=== PATIENT | male | born 1945 | race Caucasian/White ===

== ENCOUNTER 2018-08-06 11:15 | Emergency (ER) | payer MEDICARE, BC ==
[~2018-08-06] VITALS: Ht 180.3 cm; Wt 124.1 kg
[~2018-08-06 11:15] MED LIST: IBUP-1984 PO; PRED20TA PO
[2018-08-06 11:39] VITALS: BP 166/68
[2018-08-06] MEDS ORDERED: CYCL-1 PO (13:11)
[2018-08-06] MEDS ORDERED: oxyCODONE/APAP 10/325mg tablet PO ONE (13:20)
== END 2018-08-06 13:55 | disposition home or self-care (01) ==
LOC: ER 11:15
DX: G89.29 Other chronic pain (principal); M54.41 Lumbago with sciatica, right side; I10 Essential (primary) hypertension; I25.10 Atherosclerotic heart disease of native coronary artery without angina pectoris; E78.00 Pure hypercholesterolemia, unspecified; M10.9 Gout, unspecified; Z76.0 Encounter for issue of repeat prescription; Z79.1 Long term (current) use of non-steroidal anti-inflammatories (NSAID); Z79.899 Other long term (current) drug therapy; Z95.5 Presence of coronary angioplasty implant and graft; Z98.890 Other specified postprocedural states
CPT/HCPCS: 72100; 99283

== ENCOUNTER 2019-06-02 06:48 | Day surgery (SDC) | payer MEDICARE ==
[2019-06-02] VITALS (12 sets, daily range): BP systolic 122–143; BP diastolic 61–71
[~2019-06-02] VITALS: Ht 177.8 cm; Wt 97.2 kg
[~2019-06-02 06:48] MED LIST changes: +CYCL-1 PO
[2019-06-02] MEDS ORDERED: fentaNYL/PF 50MCG/1 ML 2ML syringe IV ONE (07:10)
[2019-06-02] MEDS ORDERED: MIDAZolam 1mg/ml 10ml vial IV ONE (07:10)
[2019-06-02] MEDS ORDERED: normal saline 1000ml 1,000 ML IV SCH (07:10)
[2019-06-02] MEDS ORDERED: HYDR-3686 PO (07:15)
[2019-06-02] MEDS ORDERED: HYDR12.55 PO (07:15)
[2019-06-02] MEDS ORDERED: ALLO100T PO (07:15)
[2019-06-02] MEDS ORDERED: FOLI0.4T2 PO (07:15)
[2019-06-02] MEDS ORDERED: GABA-532 PO (07:15)
[2019-06-02] MEDS ORDERED: ATOR80TA PO (07:15)
[2019-06-02] MEDS ORDERED: HYDR-4353 PO (07:15)
[2019-06-02] MEDS ORDERED: FLO0.4C PO (07:15)
[2019-06-02] MEDS ORDERED: METO-467 PO (07:15)
[2019-06-02] MEDS ORDERED: GABA-534 PO (07:15)
[2019-06-02] MEDS ORDERED: CLOP75TA15 PO (07:15)
[2019-06-02] MEDS ORDERED: APIX5TAB3 PO (07:15)
[2019-06-02 07:43] LABS: BASOPHILS % (AUTO) 0.4 % (0-1); EOSINOPHILS # (AUTO) 0.1 X10'3 (0-0.9); EOSINOPHILS % (AUTO) 2.1 % (0-6); HEMATOCRIT 35.4 % (42.0-52.0); HEMOGLOBIN 11.3 g/dl (14.0-17.9); LYMPHOCYTES # (AUTO) 1.1 X10'3 (1.1-4.8); MEAN CORPUSCULAR HEMOGLOBIN 27.8 PG (27.0-31.0); MEAN CORPUSCULAR HGB CONC 31.9 g/dL (33.0-36.5); MEAN PLATELET VOLUME 9.3 FL (7.4-10.4); MONOCYTES # (AUTO) 0.4 X10'3 (0-0.9); NEUTROPHILS # (AUTO) 3.7 X10'3 (1.8-7.7); NEUTROPHILS % (AUTO) 69.5 % (42-75); PLATELET COUNT 81 X10'3 (140-440); RED BLOOD COUNT 4.07 X10'6 (4.70-6.10); RED CELL DISTRIBUTION WIDTH 14.3 % (11.5-14.5); WHITE BLOOD COUNT 5.3 X10'3 (4.5-11.0)
[2019-06-02 07:53] LABS: ALBUMIN 3.1 G/DL (3.4-5.0); ANION GAP 6 (8-16); BLOOD UREA NITROGEN 21 MG/DL (7-18); BUN/CREATININE RATIO 15.3 (5.4-32.0); CALCIUM 8.9 MG/DL (8.5-10.1); CHLORIDE 108 MMOL/L (99-107); CREATININE 1.37 MG/DL (0.60-1.10); GLUCOSE 105 MG/DL (70-104); POTASSIUM 4.1 MMOL/L (3.5-5.1); SODIUM 143 MMOL/L (135-145); TOTAL CARBON DIOXIDE 29.1 MMOL/L (24-32); eGFR 51 ML/MIN
[2019-06-02 08:04] LABS: PARTIAL THROMBOPLASTIN TIME 29 SECONDS (22-32)
== END 2019-06-02 10:40 | disposition home or self-care (01) ==
LOC: SSTAY O 06:48 → MED 3N 06:53 → SSTAY O 10:40
PROVIDERS: ATTEND Internal Medicine Interventional Cardiology
DX: I48.92 Unspecified atrial flutter (principal); I48.91 Unspecified atrial fibrillation; I10 Essential (primary) hypertension; M19.90 Unspecified osteoarthritis, unspecified site; N40.0 Benign prostatic hyperplasia without lower urinary tract symptoms; I25.10 Atherosclerotic heart disease of native coronary artery without angina pectoris; I65.23 Occlusion and stenosis of bilateral carotid arteries; I27.20 Pulmonary hypertension, unspecified; Z86.73 Personal history of transient ischemic attack (TIA), and cerebral infarction without residual deficits; Z79.899 Other long term (current) drug therapy; Z79.01 Long term (current) use of anticoagulants; Z85.51 Personal history of malignant neoplasm of bladder
CPT/HCPCS: 36415; 80048; 85025; 85610; 85730; 92960; 93005; J2250; J3010

== ENCOUNTER 2019-12-20 09:30 | Emergency (ER) | payer MEDICARE ==
[~2019-12-20] VITALS: Ht 177.8 cm; Wt 104.0 kg
[~2019-12-20 09:30] MED LIST changes: +ALLO100T PO; +APIX5TAB3 PO; +ATOR80TA PO; +CLOP75TA15 PO; -CYCL-1 PO; +FLO0.4C PO; +FOLI0.4T2 PO; +GABA-532 PO; +GABA-534 PO; +HYDR-3686 PO; +HYDR-4353 PO; +HYDR12.55 PO; -IBUP-1984 PO; +METO-467 PO; -PRED20TA PO
[2019-12-20 10:27] LABS: BASOPHILS % (AUTO) 0.6 % (0-1); EOSINOPHILS # (AUTO) 0.3 X10'3 (0-0.9); EOSINOPHILS % (AUTO) 6.6 % (0-6); HEMATOCRIT 25.9 % (42.0-52.0); HEMOGLOBIN 8.4 g/dl (14.0-17.9); LYMPHOCYTES % (AUTO) 25.2 % (21-51); MEAN CORPUSCULAR HEMOGLOBIN 28.8 PG (27.0-31.0); MEAN CORPUSCULAR HGB CONC 32.5 g/dL (33.0-36.5); MEAN CORPUSCULAR VOLUME 88.5 FL (78-98); MEAN PLATELET VOLUME 9.3 FL (7.4-10.4); MONOCYTES # (AUTO) 0.4 X10'3 (0-0.9); MONOCYTES % (AUTO) 9.1 % (2-12); NEUTROPHILS # (AUTO) 2.4 X10'3 (1.8-7.7); NEUTROPHILS % (AUTO) 58.5 % (42-75); PLATELET COUNT 119 X10'3 (140-440); RED BLOOD COUNT 2.93 X10'6 (4.70-6.10); RED CELL DISTRIBUTION WIDTH 14.9 % (11.5-14.5); WHITE BLOOD COUNT 4.1 X10'3 (4.5-11.0)
[2019-12-20 10:45] LABS: ALANINE AMINOTRANSFERASE 25 U/L (12-78); ALBUMIN/GLOBULIN RATIO 0.9 (1.1-1.5); ALKALINE PHOSPHATASE 85 IU/L (46-116); ANION GAP 9 (8-16); ASPARTATE AMINO TRANSFERASE 19 U/L (10-37); BILIRUBIN,TOTAL 0.2 MG/DL (0.1-1.0); BLOOD UREA NITROGEN 28 MG/DL (7-18); BUN/CREATININE RATIO 24.6 (5.4-32.0); CHLORIDE 105 MMOL/L (99-107); CREATININE 1.14 MG/DL (0.60-1.10); GLUCOSE 108 MG/DL (70-104); POTASSIUM 4.6 MMOL/L (3.5-5.1); SODIUM 140 MMOL/L (135-145); TOTAL CARBON DIOXIDE 26.1 MMOL/L (24-32); TOTAL PROTEIN 6.3 G/DL (6.4-8.2); eGFR 63 ML/MIN
[2019-12-20] MEDS ORDERED: potassium Cl 20 mEq SR tablet PO STA (11:04)
[2019-12-20] MEDS ORDERED: furosemide 10 MG/1 ML 10ml inj IV ONE (11:05)
--- NOTE | 2019-12-20 11:10 | NUR ---
Pt stated he would rather stay in the wheelchair and sit upright instead of being assisted to the bed/gurney and assisted from his clothes into a hospital gown. Pt placed on tele monitor, SpO2 and BP monitoring while he is on the wheelchair. Pt does not want an IV access at this time.
[2019-12-20] MEDS ORDERED: furosemide 40mg/4ml inj IV ONE (11:15)
[2019-12-20] MEDS ORDERED: FURO-150 PO (11:40)
[2019-12-20] MEDS ORDERED: POTA10TA36 PO (11:40)
[2019-12-20 12:35] VITALS: BP 124/50
== END 2019-12-20 12:42 | disposition home or self-care (01) ==
LOC: ER 09:30
DX: R60.0 Localized edema (principal); M19.90 Unspecified osteoarthritis, unspecified site; I25.10 Atherosclerotic heart disease of native coronary artery without angina pectoris; E78.00 Pure hypercholesterolemia, unspecified; I10 Essential (primary) hypertension; G89.29 Other chronic pain; Z98.61 Coronary angioplasty status; Z98.890 Other specified postprocedural states; Z72.89 Other problems related to lifestyle; Z79.01 Long term (current) use of anticoagulants; Z79.899 Other long term (current) drug therapy
CPT/HCPCS: 36415; 71045; 80053; 83880; 85025; 96374; 99284; J1940

== ENCOUNTER 2020-10-17 14:27 | Emergency (ER) | payer MEDICARE ==
[~2020-10-17] VITALS: Ht 177.8 cm; Wt 101.6 kg
[~2020-10-17 14:27] MED LIST changes: -FOLI0.4T2 PO; +FOLI0.4T6 PO; +POTA10TA36 PO
[2020-10-17 15:59] LABS: EOSINOPHILS # (AUTO) 0.2 X10'3 (0-0.9); HEMOGLOBIN 10.6 g/dl (14.0-17.9); MEAN CORPUSCULAR HEMOGLOBIN 28.1 PG (27.0-31.0); MEAN CORPUSCULAR HGB CONC 32.1 g/dL (33.0-36.5); MONOCYTES # (AUTO) 0.4 X10'3 (0-0.9); RED BLOOD COUNT 3.78 X10'6 (4.70-6.10); WHITE BLOOD COUNT 6.3 X10'3 (4.5-11.0)
[2020-10-17 16:01] LABS: BASOPHILS % (AUTO) 0.6 % (0-1); EOSINOPHILS % (AUTO) 3.2 % (0-6); HEMATOCRIT 33.1 % (42.0-52.0); LYMPHOCYTES # (AUTO) 1.6 X10'3 (1.1-4.8); LYMPHOCYTES % (AUTO) 25.7 % (21-51); MEAN CORPUSCULAR VOLUME 87.6 FL (78-98); MEAN PLATELET VOLUME 9.2 FL (7.4-10.4); MONOCYTES % (AUTO) 6.7 % (2-12); NEUTROPHILS % (AUTO) 63.8 % (42-75); PLATELET COUNT 125 X10'3 (140-440); RED CELL DISTRIBUTION WIDTH 18.2 % (11.5-14.5)
[2020-10-17 16:03] LABS: PARTIAL THROMBOPLASTIN TIME 41 SECONDS (22-32)
[2020-10-17 16:05] LABS: ALANINE AMINOTRANSFERASE 33 U/L (12-78); ALBUMIN/GLOBULIN RATIO 1.1 (1.1-1.5); ALKALINE PHOSPHATASE 99 IU/L (46-116); ANION GAP 10 (8-16); ASPARTATE AMINO TRANSFERASE 19 U/L (10-37); BILIRUBIN,TOTAL 0.3 MG/DL (0.1-1.0); BLOOD UREA NITROGEN 41 MG/DL (7-18); BUN/CREATININE RATIO 30.6 (5.4-32.0); CALCIUM 9.3 MG/DL (8.5-10.1); CHLORIDE 105 MMOL/L (99-107); CREATININE 1.34 MG/DL (0.60-1.10); GLUCOSE 106 MG/DL (70-104); SODIUM 141 MMOL/L (135-145); TOTAL CARBON DIOXIDE 25.8 MMOL/L (24-32); TOTAL PROTEIN 7.7 G/DL (6.4-8.2); eGFR 52 ML/MIN
[2020-10-17] MEDS ORDERED: FURO-150 PO (20:44)
[2020-10-17] MEDS ORDERED: WARF2.5T82 (20:44)
[2020-10-17] MEDS ORDERED: LISI20TA28 PO (20:44)
[2020-10-17] MEDS ORDERED: LIDOcaine 2% 10ml TOPICAL JELLY (Urojet) MM ONE (20:45)
[2020-10-17 21:59] VITALS: BP 118/50
--- NOTE | 2020-10-18 01:24 | NUR ---
ASSUMED PT CARE AT 0000.
== END 2020-10-18 01:40 | disposition home or self-care (01) ==
LOC: ER 14:27
DX: S40.022A Contusion of left upper arm, initial encounter (principal); S40.021A Contusion of right upper arm, initial encounter; R31.9 Hematuria, unspecified; R30.0 Dysuria; I48.91 Unspecified atrial fibrillation; Z85.51 Personal history of malignant neoplasm of bladder; I25.10 Atherosclerotic heart disease of native coronary artery without angina pectoris; E78.00 Pure hypercholesterolemia, unspecified; I10 Essential (primary) hypertension; M19.90 Unspecified osteoarthritis, unspecified site; G89.29 Other chronic pain; M81.0 Age-related osteoporosis without current pathological fracture; Z72.89 Other problems related to lifestyle; Z95.5 Presence of coronary angioplasty implant and graft; X58.XXXA Exposure to other specified factors, initial encounter; Y93.89 Activity, other specified; Y92.89 Other specified places as the place of occurrence of the external cause; Y99.8 Other external cause status
CPT/HCPCS: 36415; 51700; 80053; 85025; 85610; 85730; 99283; 99284

== ENCOUNTER 2021-05-30 13:49 | Emergency (ER) | payer MEDICARE ==
[~2021-05-30] VITALS: Ht 177.8 cm; Wt 100.0 kg
[~2021-05-30 13:49] MED LIST changes: -APIX5TAB3 PO; +FURO-150 PO; -HYDR12.55 PO; +LISI20TA28 PO; +POTA-205 PO; -POTA10TA36 PO; +WARF2.5T82
[2021-05-30 13:59] VITALS: BP 125/49
[2021-05-30] MEDS ORDERED: cyclobenzaprine 10mg tablet PO ONE (14:25)
[2021-05-30] MEDS ORDERED: CYCL-1 PO (15:02)
== END 2021-05-30 15:23 | disposition home or self-care (01) ==
LOC: ER 13:50
DX: M54.6 Pain in thoracic spine (principal); M25.561 Pain in right knee; M25.562 Pain in left knee; I25.10 Atherosclerotic heart disease of native coronary artery without angina pectoris; E78.00 Pure hypercholesterolemia, unspecified; I10 Essential (primary) hypertension; M19.90 Unspecified osteoarthritis, unspecified site; G89.29 Other chronic pain; M10.9 Gout, unspecified; Z85.9 Personal history of malignant neoplasm, unspecified; Z95.5 Presence of coronary angioplasty implant and graft; Z72.89 Other problems related to lifestyle; Z79.899 Other long term (current) drug therapy; Z79.01 Long term (current) use of anticoagulants
CPT/HCPCS: 99283

== ENCOUNTER 2022-02-09 20:09 | Emergency (ER) | payer MEDICARE ==
[~2022-02-09] VITALS: Ht 177.8 cm; Wt 100.9 kg
[~2022-02-09 20:09] MED LIST changes: +CYCL-1 PO
[2022-02-09 20:12] VITALS: BP 121/57
[2022-02-09] MEDS ORDERED: acetaminophen 325mg tablet PO STA (21:50)
[2022-02-09] MEDS ORDERED: ibuprofen tablet 400 MG TABLET PO STA (21:50)
[2022-02-09] MEDS ORDERED: TAM75C PO (22:38)
== END 2022-02-09 22:40 | disposition home or self-care (01) ==
LOC: ER 20:09
DX: J10.1 Influenza due to other identified influenza virus with other respiratory manifestations (principal); Z20.822 Contact with and (suspected) exposure to COVID-19; I11.9 Hypertensive heart disease without heart failure; E78.00 Pure hypercholesterolemia, unspecified; G89.29 Other chronic pain; M54.2 Cervicalgia; Z79.899 Other long term (current) drug therapy
CPT/HCPCS: 87502; 87503; 87635; 99283; C9803

== ENCOUNTER 2022-11-07 12:14 | Day surgery (SDC) | payer MEDICARE ==
[~2022-11-07] VITALS: Ht 177.8 cm; Wt 100.5 kg
[2022-11-07] VITALS (8 sets, daily range): BP systolic 125–159; BP diastolic 46–89; PULSE 54–58; RESP 12–14; TEMP 98.2; O2SAT 92–99
[~2022-11-07 12:14] MED LIST changes: -GABA-534 PO; +GABA-535 PO
[2022-11-07] MEDS ORDERED: normal saline 1,000 ML IV SCH (12:35)
[2022-11-07] MEDS ORDERED: LORazepam 0.5 MG tablet PO PRN (12:35)
[2022-11-07 13:29] LABS: ANION GAP 13 (8-16); BLOOD UREA NITROGEN 40 MG/DL (7-18); BUN/CREATININE RATIO 26.3 (10.0-20.0); CALCIUM 9.9 MG/DL (8.5-10.1); CHLORIDE 103 MMOL/L (99-107); CREATININE 1.52 MG/DL (0.60-1.10); GLUCOSE 119 MG/DL (70-104); POTASSIUM 4.5 MMOL/L (3.5-5.1); SODIUM 140 MMOL/L (135-145); TOTAL CARBON DIOXIDE 24.5 MMOL/L (24-32); eCRCL 43 ML/MIN; eGFR 45 ML/MIN
[2022-11-07] MEDS ORDERED: POTA8TAB69 PO (13:29)
[2022-11-07] MEDS ORDERED: FINA5TAB11 PO (13:29)
[2022-11-07] MEDS ORDERED: LISI5TAB22 PO (13:29)
[2022-11-07] MEDS ORDERED: METO-395 PO (13:29)
[2022-11-07] MEDS ORDERED: FLO0.4C (13:29)
[2022-11-07] MEDS ORDERED: APIX5TAB3 PO (13:29)
[2022-11-07] MEDS ORDERED: GABA600T13 PO (13:29)
[2022-11-07] MEDS ORDERED: MULT-1085 PO (13:30)
[2022-11-07] MEDS ORDERED: midazolam 1 mg/ML 2ml injection ONE (13:36)
[2022-11-07] MEDS ORDERED: fentaNYL/PF 50MCG/1 ML 2ML syringe ONE (13:36)
[2022-11-07] MEDS ORDERED: LIDOcaine 1% (10mg/ml)w/preservative inj. 20ml MDV ONE (13:37)
[2022-11-07] MEDS ORDERED: iohexol 350 MG/ML 50ML vial IV ONE (13:37)
[2022-11-07 13:58] LABS: BASOPHILS % (AUTO) 0.2 % (0-1); EOSINOPHILS % (AUTO) 0.1 % (0-6); HEMATOCRIT 38.2 % (42.0-52.0); HEMOGLOBIN 12.5 g/dl (14.0-17.9); LYMPHOCYTES # (AUTO) 1.1 X10'3 (1.1-4.8); MEAN CORPUSCULAR HEMOGLOBIN 29.4 PG (27.0-31.0); MEAN CORPUSCULAR HGB CONC 32.6 g/dL (33.0-36.5); MEAN CORPUSCULAR VOLUME 90.1 FL (78-98); MEAN PLATELET VOLUME 10.6 FL (7.4-10.4); MONOCYTES # (AUTO) 0.4 X10'3 (0-0.9); MONOCYTES % (AUTO) 4.3 % (2-12); NEUTROPHILS # (AUTO) 8.5 X10'3 (1.8-7.7); NEUTROPHILS % (AUTO) 84.4 % (42-75); PLATELET COUNT 139 X10'3 (140-440); RED BLOOD COUNT 4.24 X10'6 (4.70-6.10); RED CELL DISTRIBUTION WIDTH 18.3 % (11.5-14.5); WHITE BLOOD COUNT 10.1 X10'3 (4.5-11.0)
[2022-11-07] MEDS ORDERED: HYDROcodone/acetaminophen 10/325mg tab PO PRN (15:35)
[2022-11-07] MEDS ORDERED: HYDROcodone/acetaminophen 5mg/325mg tablet PO PRN (15:35)
[2022-11-07] MEDS ORDERED: normal saline 1000ml 1,000 ML IV SCH (15:35)
[2022-11-08 06:48] LABS: ISTAT HGB MIX 11.9 g/dl (14.0-17.9); ISTAT Hct MIX 35 %PCV (42-52); ISTAT O2 SATURATION MIX VENOUS 63 % (60-80); ISTAT SOURCE VEN
== END 2022-11-07 17:15 | disposition home or self-care (01) ==
LOC: SSTAY O 12:14
PROVIDERS: ATTEND Student in an Organized Health Care Education/Training Program
DX: I11.0 Hypertensive heart disease with heart failure (principal); I50.9 Heart failure, unspecified; D64.9 Anemia, unspecified; D69.6 Thrombocytopenia, unspecified; N40.0 Benign prostatic hyperplasia without lower urinary tract symptoms; I25.10 Atherosclerotic heart disease of native coronary artery without angina pectoris; E78.5 Hyperlipidemia, unspecified; I65.29 Occlusion and stenosis of unspecified carotid artery; M19.90 Unspecified osteoarthritis, unspecified site; I48.92 Unspecified atrial flutter; Z95.5 Presence of coronary angioplasty implant and graft; Z79.899 Other long term (current) drug therapy; Z79.01 Long term (current) use of anticoagulants; Z85.51 Personal history of malignant neoplasm of bladder
CPT/HCPCS: 33289; 80048; 82803; 85014; 85025; 93005; C2624; J1644; J3490; J7030; Q9967; A6258; A6449; C1751; C1769; C1892; J2250; J3010